=== PATIENT | male | born 1980 | race Caucasian/White ===

== ENCOUNTER 2018-03-16 11:32 | Emergency (ER) | payer OTHER ==
[~2018-03-16] VITALS: Ht 167.6 cm; Wt 95.4 kg
[2018-03-16 11:37] VITALS: BP 132/75
--- NOTE | 2018-03-16 11:42 | NUR ---
PT AMBULATES TO BED 5
[2018-03-16 11:45] VITALS: BP 132/75
--- NOTE | 2018-03-16 11:45 | NUR ---
PT. CAME INTO THE ED C/O L RIB PAIN S/P FALL ON FRIDAY AT WORK. PT. STATES " I WAS WALKING AND I TRIPPED AND FELL AND LANDED ON A PLASTIC SHARP THING AND IT HAS BEEN HURTING SINCE THEN AND IT HAS GOTTEN WORSE SINCE YESTERDAY". PT. DENIES HITTING HEAD. PT HAS 8/10 PAIN IN L LATERAL RIB CAGE UPON MOVEMENT AND DESCRIBED SHARP. RR EVEN AND UNLABORED, DENIES CHEST PAIN, DENIES SOB, DENIES N/V/D. ER MD AWARE . WILL CONTINUE TO MONITOR.
[2018-03-16] MEDS ORDERED: KETOROLAC 60 MG/2 ML VIAL IM ONE (12:00)
--- NOTE | 2018-03-16 12:41 | NUR ---
Patient discharged with v/s stable. Written and verbal after care instructions given and explained. Patient verbalized understanding. Ambulatory with steady gait. All questions addressed prior to discharge. Advised to follow up with PMD.
== END 2018-03-16 12:41 | disposition home or self-care (01) ==
LOC: MED 11:32
DX: S20.212A Contusion of left front wall of thorax, initial encounter (principal); W18.39XA Other fall on same level, initial encounter; Y93.89 Activity, other specified; Y99.8 Other external cause status; Y92.89 Other specified places as the place of occurrence of the external cause
CPT/HCPCS: 71045; 96372; 99283; J1885

== ENCOUNTER 2018-06-18 15:38 | Emergency (ER) | payer OTHER ==
[~2018-06-18] VITALS: Ht 165.1 cm; Wt 93.4 kg
[2018-06-18 15:45] VITALS: BP 132/90
[2018-06-18] MEDS ORDERED: ALBUTEROL SULFATE/IPRATROPIU 3 ML SOL IH ONE (16:00)
[2018-06-18] MEDS ORDERED: diphenhydrAMINE 50 MG/ML VIAL IM ONE (16:00)
[2018-06-18] MEDS ORDERED: methylPREDNISolone SS 125 MG in WATER STERILE 2 ML IM ONE (16:00)
[2018-06-18 17:10] VITALS: BP 132/90
== END 2018-06-18 17:10 | disposition home or self-care (01) ==
LOC: MED 15:38
DX: T63.441A Toxic effect of venom of bees, accidental (unintentional), initial encounter (principal); Y92.89 Other specified places as the place of occurrence of the external cause
CPT/HCPCS: 94640; 96372; 99284; J1200; J2930; J7620